=== PATIENT | female | born 1960 | race Caucasian/White ===

== ENCOUNTER → 2016-06-26 | Outpatient (CLI) | payer OTHER ==
[~2016-06-26] MED LIST: NEURONTIN PO; TEGRETOL PO; ZOLOFT PO
--- NOTE | ~2016-06-26 | MY11 ---
[facility] A Service of [facility] RADIOLOGY TEXT RESULTS PATIENT: LOLY BLACK LOCATION: [facility] : 60 UNIT #: [id number] AGE: [address]: Odette Crenshaw MD SEX: F ORDER DR: [id number] [facility] [address] [place], [place] [address] [id number] O MR#: [id number] Acc #: [id number] NAME: LOLY BLACK : 1960 SEX: F STUDY DATE/TIME: 06/26/2016 11:56 UNIT: [facility] ROOM: STUDY DESCRIPTION: MY Mammogram Screening Dig Yuri Attending Physician: Odette Crenshaw M.D. Referring Physician: Odette Ledesma D.O. Ordering Physician: Odette Crenshaw M.D. Primary Care Physician: Odette Crenshaw M.D. MEDICAL IMAGING REPORT This report is preliminary unless electronic signature is present EXAM Bilateral digital screening mammogram with CAD INDICATION Routine screening. No current complaints and no family history of breast cancer. COMPARISON 03/05/2015, 09/25/2013, 09/02/2013 FINDINGS MLO and CC digital views of each breast were obtained. The exam was reviewed with an FDA-approved CAD device. There is also an exaggerated lateral CC view of the right breast. The breasts are heterogeneously dense but patchy distribution. Small nodule in the medial right breast is stable. Prior ultrasound showed a solid 6.0 mm nodule in the right breast at 3 o'clock and this nodule appears stable on the mammogram. IMPRESSION No significant change. No evidence of malignancy. Patients over the age of 40 are entered into a reminder system with target due date for the next mammogram. A result letter will also be sent to the patient. BIRADS: 2 Benign Finding Dictated by... Taran Brambila M.D. THIS IS AN ELECTRONICALLY VERIFIED REPORT Taran Brambila M.D. at 06/27/2016 7:13 AM MARCELLE/[place] [facility] A Service of [facility] RADIOLOGY TEXT RESULTS PATIENT: LOLY BLACK LOCATION: [facility] #: [id number] : 60 UNIT #: [id number] AGE: [address]: Odette Crenshaw MD SEX: F ORDER DR: TD: 06/26/2016 18:12 JOB #: [id number] MEDICAL IMAGING REPORT COPY
== END | disposition home or self-care (01) ==
LOC: CWCC 11:36
DX: Z12.31 Encounter for screening mammogram for malignant neoplasm of breast (principal)
CPT/HCPCS: G0202